=== PATIENT | female | born 1975 | race American Indian/Alaskan Native ===

== ENCOUNTER 2021-08-21 07:14 | Outpatient (CLI) | payer MEDICAID, SELFPAY ==
--- NOTE | 2021-08-21 09:00 | RT.EKG_ITS ---
APPROVED REPORT Exam: Resting ECG Reason for Exam: high risk med Patient Location: O HR:57 bpm ECG Measurements Heart Rate 57 AXIS AL 147 P 60 QRSd 149 QRS 70 QT 465 T -2 QTc 453 Conclusion Sinus bradycardia...rate< 60 Right bundle branch block...QRSd>120, terminal axis(90,270)
== END 2021-08-21 07:15 | disposition home or self-care (01) ==
LOC: RT 07:17
PROVIDERS: Visit Provider Family Medicine
DX: Z51.81 Encounter for therapeutic drug level monitoring (principal); R00.1 Bradycardia, unspecified; I45.10 Unspecified right bundle-branch block
CPT/HCPCS: 93005; 93010

== ENCOUNTER 2021-09-21 18:50 | Outpatient (REF) | payer MEDICAID, SELFPAY ==
[2021-09-21 21:45] LABS: Abs Immature Grans 0.04 10^3/uL (0.0-0.06); Absolute Basophil Count 0.04 10^3/uL (0.0-0.2); Absolute Lymphocyte Count 2.73 10^3/uL (1.2-3.4); Absolute Monocyte Count 0.58 10^3/uL (0.1-0.8); Absolute Neutrophil Count 7.26 10^3/uL (1.2-6.7); Basophils % 0.4; Eosinophils % 1.8; HCT 33.5 % (36.0-46.0); HGB 10.6 g/dL (11.2-15.7); Immature Grans % 0.4; Lymphocytes % 25.2; MCH 27.7 pg (27.0-33.0); MCHC 31.6 % (32.0-36.0); MCV 87.7 fL (80-95); MPV 8.9 fL (8.0-11.0); Monocytes % 5.3; Neutrophils % 66.9; Platelet Count 349 10^3/uL (130-400); RBC 3.82 10^6/uL (3.93-5.22); RDW 16.4 % (11.7-14.6); RDW-SD 52.5 fL; WBC 10.85 10^3/uL (4.4-10.8)
[2021-09-21 21:47] LABS: Anion Gap 8.6 mmol/L (3-11); BUN 16 mg/dL (7-18); CO2 27.4 mmol/L (21.0-32.0); CREATININE 0.9 mg/dL (0.55-1.02); Calcium 8.8 mg/dL (8.5-10.1); Chloride 107 mmol/L (98-107); Glucose 74 mg/dL (74-106); Sodium 143 mmol/L (136-145)
== END 2021-09-21 18:51 | disposition home or self-care (01) ==
LOC: LBN 18:50
PROVIDERS: PCP Nurse Practitioner; Visit Provider Physician Assistant Medical
DX: N93.8 Other specified abnormal uterine and vaginal bleeding (principal)
CPT/HCPCS: 80048; 85025

== ENCOUNTER 2021-09-24 09:23 | Outpatient (CLI) | payer MEDICAID, SELFPAY ==
--- NOTE | 2021-09-24 | DI.US_ITS ---
Exam(s) US PELVIS TRANSVAGINAL EXAM: US PELVIS TRANSVAGINAL CLINICAL HISTORY: DYSFUNCTIONAL UTERINE BLEEDING, N93.8, HEAVY ABNL CYCLES LAST 6 MONTHS TECHNIQUE: Transabdominal and transvaginal imaging was performed using standard protocol. COMPARISON: No exams were available for comparison FINDINGS: KIDNEYS: Kidneys are symmetric in size. No evidence of renal calculi. No evidence of hydronephrosis. No renal mass or cyst identified. Transabdominal images are limited by inadequate bladder distention. Fundus of the uterus not well seen on transvaginal imaging. UTERUS: Anteverted. 7.4 x 4.3 x 5.5 cm Endometrium: Measures at approximately 15 millimeters in thickness. No fluid within the canal.. End ometrium is not well delineated on either transabdominal or transvaginal sequences. The apparent end ometrial thickening could be related to technical factors versus to the thickened endometrium which c ould be secondary to hyperplasia or carcinoma versus adenomyosis. Myometrium: Unremarkable. No visible fibroids. Cervix: Unremarkable. OVARIES: Right: Cyst or mass: None. Left: Cyst or mass: Left ovary not visualized. Likely obscured by bowel gas. CUL-DE-SAC: Free fluid: None. IMPRESSION: 1. Question of thickened heterogeneous endometrium versus technical factors. Findings could represen t endometrial hide hyperplasia adenomyosis or endometrial carcinoma. Biopsy recommended.. 2. Left ovary not visualized. Right ovary unremarkable. DATA REPOSITORY:
== END 2021-09-24 09:43 ==
PROVIDERS: PCP Nurse Practitioner; Visit Provider Physician Assistant Medical
DX: N93.8 Other specified abnormal uterine and vaginal bleeding (principal); R93.89 Abnormal findings on diagnostic imaging of other specified body structures
CPT/HCPCS: 76830; 76856

== ENCOUNTER 2021-09-28 09:53 | Outpatient (REF) | payer MEDICAID, SELFPAY ==
--- NOTE | 2021-09-28 09:05 | PAPFT_PTH ---
PATIENT: Beatrice Pascal LOC: [facility] U#:[id number] AGE/SX: 46/F ROOM: RE09/28/[address]: Eda Forte MD : 1975 BED: DIS: 09/28/2021 SPEC #: [id number] RECD: 09/28/21 13:00 STATUS: JAVIER REDu #: [id number] ITZEL: 09/28/21 09:[address]: Eda Forte DEPT: [facility] Cytology RECD BY: Ryanne Pierre ENTERED: 09/28/21 13:01 SP TYPE: PAPFT OTHR DR: aDyami Badillo APRN Tissues: 1 - CX/ENDOCX FOR PAP SMEARS Procedures: PAP THIN PREP/[facility] Screening HPV DNA PROBE Comments: [id number] (CHLAMYDIA/GC)
--- NOTE | 2021-09-28 09:05 | ENDOMET_PTH ---
PATIENT: Beatrice Pascal LOC: [facility] U#:[id number] AGE/SX: 46/F ROOM: RE09/28/[address]: Eda Forte MD : 1975 BED: DIS: 09/28/2021 SPEC #: [id number] RECD: 09/28/21 12:12 STATUS: JAVIER REDu #: [id number] ITZEL: 09/28/21 09:[address]: Eda Forte DEPT: Surgical Specimen RECD BY: Ryanne Pierre ENTERED: 09/28/21 12:13 SP TYPE: Endomet OT DR: Dayami Badillo APRN Tissues: 1 - ENDOMETRIUM BX/MUNA Procedures: GROSS AND MICRO LEVEL 4 Comments: [id number]
[2021-10-01 14:46] LABS: Chlamydia Result Negative (Negative); GC Result Negative (Negative)
== END 2021-09-28 09:54 | disposition home or self-care (01) ==
LOC: LBN 09:53
PROVIDERS: PCP Nurse Practitioner; Visit Provider Obstetrics & Gynecology
DX: Z11.3 Encounter for screening for infections with a predominantly sexual mode of transmission (principal); Z12.4 Encounter for screening for malignant neoplasm of cervix; Z11.51 Encounter for screening for human papillomavirus (HPV); N93.8 Other specified abnormal uterine and vaginal bleeding; N84.0 Polyp of corpus uteri; N85.01 Benign endometrial hyperplasia
CPT/HCPCS: 87491; 87591; 88142; 88305; 87624

== ENCOUNTER 2021-10-11 03:33 | Outpatient (CLI) | payer MEDICAID, SELFPAY | END 2021-10-11 03:34 | disposition home or self-care (01) | LOC: LBO 03:33 | PROVIDERS: PCP Nurse Practitioner; Referring Provider Nurse Practitioner ==

== ENCOUNTER 2021-11-30 01:54 | Outpatient (CLI) | payer MEDICAID, SELFPAY | END 2021-11-30 01:55 | disposition home or self-care (01) | PROVIDERS: PCP Nurse Practitioner; Visit Provider Nurse Practitioner ==